=== PATIENT | female | born 1965 | race Caucasian/White ===

== ENCOUNTER → 2019-02-25 | Emergency (ER) | payer OTHER ==
[~2019-02-25] VITALS: Ht 165.1 cm; Wt 116.6 kg
[~2019-02-25] MED LIST: LISINOPRIL20 MG PO; NABUMETONE500 MG PO; PERCOCET 5/3251 TAB PO
== END | disposition home or self-care (01) ==
LOC: ER 15:52
DX: M94.0 Chondrocostal junction syndrome [Tietze] (principal)